=== PATIENT | female | born 1985 | race Caucasian/White ===

== ENCOUNTER → 2018-03-22 14:37 | Outpatient (CLI) | payer OTHER, SELFPAY ==
--- NOTE | 2018-03-22 | DI.US.S_ITS ---
ULTRASOUND OF LEFT BREAST: 03/22/2018 CLINICAL: Patient returns for additional imaging over a suspected mass in the left breast. Comparison is made to exam dated: 03/22/2018 mammogram - [facility]. Real-time and Doppler ultrasound of the left breast were performed. Siddiqi scale images of the real-time examination were reviewed. There is a 1.3 cm x 1.2 cm x 0.7 cm irregular mass with an angular margin in the left breast at 12 o'clock 8 cm from the nipple. This irregular mass is hypoechoic with internal echoes. This correlates as palpated and with mammography findings. Color flow imaging demonstrates that there is no vascularity present. IMPRESSION: SUSPICIOUS OF MALIGNANCY - FOLLOW-UP RECOMMENDED The 1.3 cm x 1.2 cm x 0.7 cm irregular mass in the left breast is at a low suspicion for malignancy. An ultrasound guided biopsy is recommended. These results and recommendations were discussed with the patient in person by [facility] Radiologist Dr. Xu Jacobsen at the time of the exam. This exam was interpreted at Station ID: [id number]. Electronically Signed By: Hilario Espinoza M.D. ecl/:03/22/2018 20:55:28 letter sent: Biopsy Required Ultrasound BI-RADS: 4a Suspicious abnormality - low suspicion for malignancy
--- NOTE | 2018-03-22 | DI.MG.S_ITS ---
BILATERAL DIGITAL DIAGNOSTIC MAMMOGRAM 3D/2D: 03/22/2018 CLINICAL: Baseline exam. Left breast lump. No prior exams were available for comparison. The tissue of both breasts is extremely dense, which lowers the sensitivity of mammography. There is a triangular marker overlying the skin of the upper left breast at the site of the patient's reported palpable abnormality. There is an approximately 1.4 cm oval indistinct asymmetry in the upper left breast at posterior depth seen only on the L MLO view, with internal calcifications and located slightly superior to the triangular palpable abnormality marker. No other significant masses, calcifications, or other findings are seen in either breast. IMPRESSION: INCOMPLETE: NEEDS ADDITIONAL IMAGING EVALUATION Approximately 1.4 cm oval indistinct asymmetry in the upper left breast at posterior depth seen only on the L MLO view, with internal calcifications and located slightly superior to the triangular palpable abnormality marker. Targeted diagnostic ultrasound recommended for further evaluation, which will be performed immediately following this exam. This exam was interpreted at Station ID: [id number]. NOTE: For mammograms, a report in lay terms will be sent to the patient. Approximately 15% of breast malignancies will not be visualized mammographically. In the management of a palpable breast mass, a negative mammogram must not discourage biopsy of a clinically suspicious lesion. Electronically Signed By: Hilario Espinoza M.D. ecl/:03/22/2018 21:12:09 letter sent: Additional Imaging Needed ACR BI-RADS Category 0: Incomplete [id number]
== END ==
PROVIDERS: Visit Provider Family Medicine
DX: R92.8 Other abnormal and inconclusive findings on diagnostic imaging of breast (principal); N63.20 Unspecified lump in the left breast, unspecified quadrant
CPT/HCPCS: 76642; 77066; G0279

== ENCOUNTER → 2018-04-05 07:45 | Outpatient (CLI) | payer OTHER, SELFPAY ==
--- NOTE | 2018-04-05 | DI.US.S_ITS ---
ULTRASOUND OF LEFT BREAST: 04/05/2018 CLINICAL: Patient here for left breast biopsy of palpable mass. Today mass measures smaller. biopsy cancelled. Patient will return for 3 month follow-up. Comparison is made to exams dated: 03/22/2018 ultrasound and 03/22/2018 mammogram [facility]. Real-time and Doppler ultrasound of the left breast were performed on the areas of interest. There is a 1 cm x 0.8 cm x 0.7 cm irregular mass with an angular margin in the left breast at 12 o'clock 8 cm from the nipple. This irregular mass is hypoechoic with internal echoes. This correlates as palpated and with mammography findings. Color flow imaging demonstrates that there is no vascularity present. This patient was scheduled to undergo an ultrasound guided breast biopsy. However, the lesion measures smaller in size on the current study than on the prior dated 03/22/18. Management options were discussed with the biopsy and a short-term followup in 3 months. The patient elected to follow this lesion rather than biopsy it. IMPRESSION: PROBABLY BENIGN - FOLLOW-UP RECOMMENDED The 1 cm x 0.8 cm x 0.7 cm irregular mass in the left breast is probably benign, given the decrease in size. A follow-up ultrasound in 3 months is recommended. Electronically Signed By: Thang teague/:04/05/2018 11:07:58 letter sent: Followup Recommended Ultrasound BI-RADS: 3 Probably benign
== END ==
PROVIDERS: Visit Provider Family Medicine
DX: N63.20 Unspecified lump in the left breast, unspecified quadrant (principal)
CPT/HCPCS: 76642

== ENCOUNTER → 2018-05-08 17:02 | Outpatient (CLI) | payer OTHER, SELFPAY ==
--- NOTE | 2018-05-08 17:05 | DI.RAD.S_ITS ---
PROCEDURE: XR LUMBAR SPINE 2-3V INDICATIONS: LOW BACK PAIN TECHNIQUE: 3 views of the lumbar spine were acquired. COMPARISON: None. FINDINGS: Bones: 5 [id number] vertebrae are present. There is normal bony alignment. No vertebral body compression fractures. No suspicious bony lesions. Soft tissues: Overlying bowel gas pattern is normal. No suspicious soft tissue calcifications. IMPRESSION: Unremarkable radiographic examination of lumbar spine. Dictated by: Carson Ordaz M.D. on 05/08/2018 at 19:37 Approved by: Carson Ordaz M.D. on 05/08/2018 at 19:37
== END ==
PROVIDERS: Visit Provider Family Medicine
DX: M54.5 Low back pain (principal)
CPT/HCPCS: 72100

== ENCOUNTER → 2018-07-14 12:42 | Outpatient (CLI) | payer OTHER, SELFPAY ==
--- NOTE | 2018-07-14 | DI.US.S_ITS ---
LIMITED ULTRASOUND OF LEFT BREAST: 07/14/2018 CLINICAL: 3 month follow-up of shrinking mass. Comparison is made to exams dated: 04/05/2018 ultrasound, 03/22/2018 ultrasound, and 03/22/2018 [facility]. Real-time and Doppler ultrasound of the left breast 12 o'clock region were performed. Siddiqi scale images of the real-time examination were reviewed. Previously noted mass in the left breast at 12 o'clock position 8 cm from the nipple seen on comparison breast ultrasounds of 03/22/2018 and 04/05/2018 is no longer detectable by ultrasound on today's exam. IMPRESSION: NEGATIVE Previously noted mass in the left breast at 12 o'clock position 8 cm from the nipple seen on comparison breast ultrasounds of 03/22/2018 and 04/05/2018 is no longer detectable by ultrasound on today's exam. Clinical follow-up is recommended for further evaluation and management. The patient is advised to monitor her breasts and to return for re-evaluation should she feel anything grow or change. Annual screening mammography beginning at age 40 is recommended, unless earlier high-risk screening is warranted due to individual patient risk factors for the development of breast malignancy. This exam was interpreted at Station ID: [id number]. Electronically Signed By: Hilario Espinoza M.D. ecl/:07/14/2018 13:26:52 letter sent: Clinical Evaluation Ultrasound BI-RADS: 1 Negative
== END ==
PROVIDERS: Visit Provider Family Medicine
DX: Z12.31 Encounter for screening mammogram for malignant neoplasm of breast (principal)
CPT/HCPCS: 76642

== ENCOUNTER → 2020-06-30 15:48 | Outpatient (CLI) | payer OTHER, SELFPAY ==
--- NOTE | 2020-06-30 | DI.RAD.S_ITS ---
PROCEDURE: XR FINGER RT MIN 2V INDICATIONS: RIGHT THUMB PAIN AT TO MCP JOINT TECHNIQUE: AP hand, 2 views of the 1st finger(s) acquired. COMPARISON: None. FINDINGS: Bones: No fractures or dislocations. No suspicious bony lesions. Soft tissues: No suspicious soft tissue calcifications. IMPRESSION: No definite radiographic abnormality. If pain persists with conservative management, consider cross sectional imaging such as CT or MRI for further assessment. Dictated by: Jaciel Greco A Interpreted: Estefany Cm MD on 06/30/2020 at 16:23 Approved by: Estefany Cm M.D. on 06/30/2020 at 17:09
== END ==
PROVIDERS: PCP Family Medicine; Referring Provider Family Medicine; Visit Provider Family Medicine
DX: M79.644 Pain in right finger(s) (principal)
CPT/HCPCS: 73140

== ENCOUNTER 2021-02-25 21:58 | Emergency (ER) | payer OTHER, SELFPAY ==
--- NOTE | 2021-02-25 22:04 | ED.URI ---
HPI - URI/Sore Throat General Chief Complaint: Recheck/Abnormal Lab/Rx Stated Complaint: wants a covid test Time Seen by Provider: 02/25/21 22:03 History of Present Illness HPI Narrative: 35-year-old female nonsmoker with noncontributory medical history presents requesting a test for COVID after attending a baby shower over the weekend where there was someone who was later found to be COVID positive. Patient denies any symptoms whatsoever. Patient denies fever, headache, runny nose, nasal congestion, sore throat, cough or GI symptoms such as nausea, vomiting or diarrhea Related Data Home Medications Medication Instructions Recorded Confirmed FOLIC ACID/VIT A/VIT B1/VIT 1 tab PO Q DAY #0 07/09/11 (#MULTIVITAMIN) Previous Rx's Medication Instructions Recorded MELOXICAM 15 mg PO QDAY #14 . 06/15/12 TRANEXAMIC ACID (LYSTEDA) 650 mg PO TID #21 06/15/12 omeprazole 20 mg capsule,delayed 20 mg PO QDAY@0600 #30 06/15/12 release CLOMIPHENE CITRATE (CLOMID~) 50 mg PO Q DAY #5 06/20/12 Allergies Allergy/AdvReac Type Severity Reaction Status Date / Time No Known Drug Allergies Allergy Verified 02/25/21 22:11 Review of Systems Review of Systems Narrative: GENERAL: Denies chills, fatigue, malaise, fever, sweats. HEENT: Denies sinus pain, ear pain, sore throat, difficulty swallowing, dizziness. RESPIRATORY: Denies dyspnea, cough, wheezing, hemoptysis, sputum. CARDIOVASCULAR: Denies chest pain, palpitations, orthopnea, edema, GASTROINTESTINAL: Denies nausea, vomiting, abdominal pain, diarrhea, constipation, melena. : Denies dysuria, frequency, incontinence, hematuria, urinary retention. MUSCULOSKELETAL: denies weakness, joint pain, or bony pain SKIN: Denies rash, skin lesions, or other NEUROLOGIC: Denies weakness, headache, numbness, change in speech, confusion, seizures, incoordination. PSYCHIATRIC: No concerning psychosocial issues. 12 point review of systems is negative except for those stated above Patient History Social History Smoking Status: Never smoker Exam Narrative Exam Narrative: GEN: AOx3 and in no obvious distress, resting comfortably EYES: Pupils are equal, round, and reactive to light and accommodation. Extraoccular muscles are intact bilaterally. There is no subconjunctival hemorrhage or exudate. CHEST: Lungs are clear to auscultation bilaterally and free of wheezes, rales, or rhonchi. Heart rate is regular rhythm, there are no murmurs, clicks, rubs, or gallops. There is no chest wall tenderness. ABD: Abdomen is soft and nontender. There is no guarding or rebound. Bowel sounds are normal in all 4 quadrants. There is no mass or organomegaly. EXT: Full painless ROM of all extremities with no loss of sensation or strength. SKIN: Warm, pink, and dry. No erythema or rash Initial Vital Signs Initial Vital Signs: Vital Signs Temperature 98.2 F 02/25/21 22:11 Pulse Rate 92 H 02/25/21 22:11 Respiratory Rate 14 02/25/21 22:11 Blood Pressure 124/63 02/25/21 22:11 Pulse Oximetry 97 02/25/21 22:11 Course Orders Ordered: ED Orders 02/25/21 22:10 COVID19 -Nasal swab/Pre-Proc Stat Vital Signs Vital signs: Vital Signs - 8 hr 02/25/21 22:11 Temperature 98.2 F Pulse Rate 92 H Respiratory Rate 14 Blood Pressure 124/63 Pulse Oximetry 97 MDM - URI/Sore Throat Lab Data Labs: Lab Results 02/25/21 Range/Units 22:10 SARS-CoV-2 (PCR) Negative (Negative) Discharge Plan Departure Patient Disposition: Home Clinical Impression: Feared complaint without diagnosis Instructions: COVID-19 Viral Test Activity Restrictions/Additional Instructions: *You have been diagnosed with [COVID exposure, with negative test] *What to do: *Please continue to take your regular medications as directed. [ ] New medication prescriptions sent to your pharmacy: [ ] [ ] New medication written as a paper prescription [ x] No new medications given *Please follow up with your primary care provider in 2-3 days, call for an appointment. Let them know you were seen in the Emergency Department and that we ask that you be seen in follow up. We will electronically transmit a record of today's note if your PCP is in our system *If you do not have a primary care provider please contact the [facility] Resource line at [phone]. They will ask some questions about your medical history and help get you set up with a doctor in the community. *Return to Emergency Department if you should have any new, worsening or concerning symptoms, such as [fever greater than 101 F, shaking chills, worsening pain, persistent vomiting or other bothersome symptoms] Prescriptions: No Action FOLIC ACID/VIT A/VIT B1/VIT (#MULTIVITAMIN) 1 tab PO Q DAY Qty: 0 RF: 0 omeprazole 20 MG capsule,delayed release(DR/EC) 20 mg PO QDAY@0600 Qty: 30 RF: 1 MELOXICAM 15 mg PO QDAY Qty: 14 RF: 3 TRANEXAMIC ACID (LYSTEDA) 650 mg PO TID Qty: 21 RF: 3 CLOMIPHENE CITRATE (CLOMID~) 50 mg PO Q DAY Qty: 5 RF: 3 Referrals: Fay Aguero MD [Primary Care Provider] -
[2021-02-25 22:11] VITALS: BP 124/63; PULSE 92; RESP 14; TEMP 36.8; O2SAT 97
[2021-02-25 22:47] LABS: COVID19 -Nasal RAPID Negative (Negative)
== END 2021-02-25 23:11 | disposition home or self-care (01) ==
PROVIDERS: Emergency Provider Emergency Medicine; PCP Family Medicine
DX: Z20.822 Contact with and (suspected) exposure to COVID-19 (principal)
CPT/HCPCS: 87635; 99281; C9803

== ENCOUNTER → 2021-06-29 12:13 | Outpatient (CLI) | payer OTHER, SELFPAY ==
--- NOTE | 2021-06-29 | DI.US.S_ITS ---
PROCEDURE: US ABDOMEN COMPLETE INDICATIONS: Generalized abdominal pain TECHNIQUE: Real-time scanning was performed of the abdominal and retroperitoneal organs, with image documentation. COMPARISON: None. FINDINGS: Liver: Liver is normal in size and homogeneous in echotexture. Gallbladder: Normal appearance Biliary ducts: Intrahepatic bile ducts are non-dilated. Extrahepatic bile duct caliber measures 2 mm. Normal is 6-7 mm or less in diameter, or 10 mm or less post-cholecystectomy. Pancreas: Predominantly obscured. Spleen: Spleen is normal in size and homogeneous in echotexture. Kidneys: Kidneys are normal in size and echotexture. Right kidney measures 10.5 cm long; left kidney measures 10.7 cm long. No hydronephrosis or nephrolithiasis. No solid masses. Aorta: Visualized aorta is normal in caliber at less than 3 cm. Iliacs: Proximal common iliac arteries are normal in caliber at less than 2.5 cm. IVC: Intrahepatic inferior vena cava is patent. Miscellaneous: No free abdominal fluid. IMPRESSION: No significant abnormality. Dictated by: Rupesh Merino M.D. on 06/29/2021 at 14:32 Approved by: Rupesh Merino M.D. on 06/29/2021 at 14:34
== END ==
PROVIDERS: PCP Family Medicine; Referring Provider Family Medicine; Visit Provider Family Medicine
DX: R10.84 Generalized abdominal pain (principal)
CPT/HCPCS: 76700

== ENCOUNTER 2022-11-22 10:23 | Day surgery (SDC) | payer OTHER, SELFPAY ==
[2022-11-19 09:33] VITALS: BMI 21.9
[2022-11-22] VITALS (15 sets, daily range): BP systolic 109–127; BP diastolic 68–84; PULSE 61–87; RESP 12–21; TEMP 36.4–36.9; O2SAT 98–100; BMI 21.9
--- NOTE | 2022-11-22 | PATH_ITS ---
Note [facility] Accession Number: [id number] TESTS RESULT FLAG UNITS REF RANGE LAB Clinician Provided Cytology Information No. of containers..01 Other (Miscellaneous) Source: LEFT OVARIAN CYST FL DIAGNOSIS: LEFT OVARIAN CYST FL NEGATIVE FOR MALIGNANT CELLS. THIS INTERPRETATION INCLUDES EVALUATION OF A CELL BLOCK. Pathologist ICD10: N83.209 Signed out by: Shelli Vincent MD, Pathologist NPI- [id number] Performed by: Seymour Griggs, Rfid Specialist ([facility]) Gross description: 10 CC, YELLOW, HAZY RECEIVED: FRESH IN ORANGE CAP CONTAINER.VO /VDU 11/23/2022 0632 Local FLAG LEGEND: L-Low Normal,H-High Normal,LL-Alert Low,HH-Alert High <-Panic Low,>-Panic High,A-Abnormal,AA-Critical Abnormal Performed at: 01 =Z [facility] [address] [place] [address] [address], [place] [address] Aquiles Elam MD, Performed at: 01 [facility] [address] [place] [address] [address], [place], [place] [id number] MD Aquiles Elam MD Phone: [phone]
[2022-11-22] MEDS: LACTATED RINGERS 1,000 ML 100 ML IV (11:15)
--- NOTE | 2022-11-22 11:52 | PM.GYNHP.1 ---
History of Present Illness History of Present Illness Reason for admission: pelvic pain Narrative: Javon Mixon is a 36 year old female G0 who presents for a diagnostic laparoscopy and possible fulguration of endometriosis. This is being done due to pelvic pain, dysmenorrhea, and menorrhagia. Patient has not had any prior laparoscopy. [facility] Medical History (Updated 10/31/22 @ 15:34 by Cherelle Rice MD) Endometriosis (~2011) Headache Heavy menses Infertility (~2009) Irregular menstrual cycle Menses painful Migraines Neutropenia Surgical History (Updated 12/17/21 @ 21:40 by Crissy Delarosa) Anesthesia History of ear surgery (~1995) Hx of tympanostomy tubes Family History (Updated 12/17/21 @ 21:48 by Crissy Delarosa) Sister Endometriosis Ovarian cyst Spinal disorder Esophageal disease Sister Multiple drug allergies Endometriosis Ovarian cyst Grandfather Cancer Hypertension Grandmother Hypertension Grandfather Dementia Grandmother Cancer Stroke Family/Other Breast cancer Social History household members: spouse Smoking Status: Never smoker alcohol intake: current Meds Home Medications and Allergies Home Medications Medication Instructions Recorded Confirmed Type levocetirizine 5 mg tablet 5 mg PO DAILY 11/22/22 11/22/22 History Allergies Allergy/AdvReac Type Severity Reaction Status Date / Time No Known Drug Allergies Allergy Verified 11/22/22 10:51 Exam Vital Signs (past 8 hours): - 11/22/22 11:09 Temperature 98.2 F Pulse Rate 69 Respiratory Rate 21 Blood Pressure 113/68 Pulse Oximetry 100 Oxygen Delivery Method Room Air Oxygen Delivery Method Room Air Narrative Exam Narrative: HEENT: [No thyromegaly, no anterior cervical or supraclavicular lymphadenopathy.] Lungs:[Clear to auscultation bilaterally, no wheezes.] Cardiovascular: [Regular rate and rhythm, no murmurs, rubs, or gallops]. Abdomen: [No scars. No hepatosplenomegaly. No masses palpable.] External genitalia: [Normal] Vagina: [Normal] Cervix: [Normal] Bimanual exam: [[6] Week size uterus. Mobile.] Rectal: [No masses]. Assessment & Plan Assessment & Plan narrative: Assessment: 36-year-old 0 with dysmenorrhea and menorrhagia Suspect endometriosis Plan: Diagnostic laparoscopy with possible fulguration of endometriosis The risks, benefits, and alternatives to the procedure were explained to the patient. The risks including bleeding, infection, injury to the bowel, bladder, or ureters. She understands these risks and agrees to proceed. A full par Q was held and consent form was signed. Time Spent With Patient Time with patient: less than 30 minutes
--- NOTE | 2022-11-22 11:54 | PM.PREOP ---
Pre-operative Note COVID-19 Criteria for continued procedure: Non-surgical alternatives not available or appropriate per current SOC Interval Note History & Physical reviewed/Exam performed by Physician: Yes Changes to H&P: No H&P completed within 30 days and has changed as indicated here:: 11/22/22
[2022-11-22] MEDS: CEFAZOLIN 2 GM/100 ML PREMIX 100 ML IV (12:20)
[2022-11-22] MEDS: BUPIVACAINE 0.5% (PF) 30 ML, EPINEPHrine 0.15 MG INJ (12:30)
--- NOTE | 2022-11-22 12:33 | SUR.OPER ---
Lithotomy on padded OR bed. [place] Pad Positioner under torso. Head on pillow, arms padded and tucked at sides. Legs secured in padded yellow fins stirrups.
[2022-11-22] MEDS: HYDROMORPHONE 2 MG INJ IV ×2 (13:28→13:41)
--- NOTE | 2022-11-22 13:30 | PM.GYNOP.1 ---
Operative Date/Time/Diagnoses Date of procedure: 11/22/22 Time of procedure: 13:30 Pre-op diagnosis: Menorrhagia Severe dysmenorrhea Pelvic pain Post-op diagnosis: same Procedure & Clinicians Procedure: Procedures Operation Date: 11/22/22 11:45 Actual Procedure Side Surgeon bryant YEH Laparoscopy and aspiration of left ovarian cyst Left Cherelle Rice MD Indications: Menorrhagia Severe dysmenorrhea Pelvic pain Surgeon: Cherelle Rice Pin Drafting Machine Tender: Kriss [place] Anesthesia Type: General and Local Operative Notes Findings: 8 week size retroflexed uterus Severe endometriosis of posterior cul de sac and bilateral ovarian fossae R>L Normal liver, gallbladder and appendix 2cm fibroma on the left ovary 4cm left ovarian cyst Normal right tube and ovary Right ovary stuck to pelvic sidewall Closure Type: primary Specimen(s): other (left ovarian cyst fluid) Estimated blood loss (mL): 5 Blood products transfused: none Procedure in detail: After informed consent was obtained, the patient was taken to the operating room where she was placed in the dorsal supine position. After adequate general endotracheal anesthesia was achieved, she was placed in the dorsal lithotomy position, and prepped and draped in the usual sterile fashion. A time-out was performed. A bivalve speculum was placed into the vagina and the anterior lip of the cervix was grasped with a single-tooth tenaculum. The cervical os was sequentially dilated in the retroverted position until the Zumi uterine manipulator could pass easily into the endometrial cavity. The single-tooth tenaculum was removed from the anterior lip of the cervix. The bivalve speculum was removed from the vagina. Attention was then turned to the abdomen where 6 cc of 0.5% Marcaine with epinephrine were injected in the umbilical fold. A 5 mm incision was made. The Veress needle was placed into the peritoneal cavity, and its placement confirmed by aspiration and drop test. The abdominal cavity was insufflated with 3.5 L of CO2. The Veress needle was removed, and a 5 mm trocar was placed without difficulty. A second incision was made 4 cm on the left side lateral to the umbilicus after 6 cc of 0.5% Marcaine with epinephrine were injected. A 5 mm trocar was placed without difficulty and under direct visualization. Initial inspection of the pelvis and abdomen revealed the findings noted above. There was significant endometriosis of the fundus of the uterus as well as posteriorly which caused the uterus to be ?stuck? in the posterior cul-de-sac. Both ovarian fossa had evidence of severe endometriosis. No endometriosis on the bladder, appendix, were diaphragm. Using a point aspirator, the cyst on the left ovary was drained and the cyst fluid sent to cytology. The instruments were removed from the abdomen. The CO2 was allowed to escape. The incisions were closed with 4-0 Monocryl in a subcuticular fashion. Steri-Strips and Allevyn dressings were placed. The Zumi uterine manipulator was removed from the uterus. Sponge, lap, and instrument counts were correct x2. The patient tolerated the procedure well, and was taken to PACU in stable condition. Complications: none Post-operative Condition: stable Disposition: PACU Plan for aftercare: Home after Recovery
[2022-11-22] MEDS: OXYCODONE/ACETAMINOPHEN 5/325 TABLET 1 TAB PO (13:51)
[2022-11-22] MEDS: ONDANSETRON 4 MG/2 ML INJ IV (14:37)
[2022-11-22] MEDS: METOCLOPRAMIDE 10 MG/2 ML INJ IV (14:56)
== END 2022-11-22 15:05 | disposition home or self-care (01) ==
PROVIDERS: PCP Family Medicine; Referring Provider Obstetrics & Gynecology; Visit Provider Obstetrics & Gynecology
PROC: 0U5B4ZZ Destruction of Endometrium, Percutaneous Endoscopic Approach (ICD-10-PCS; CPT 58662; principal; 2022-11-22 11:45)
DX: N92.0 Excessive and frequent menstruation with regular cycle (principal); N94.6 Dysmenorrhea, unspecified; D27.1 Benign neoplasm of left ovary; N80.329 Endometriosis of the posterior cul-de-sac, unspecified depth
CPT/HCPCS: 49322; J0171; J0690; J1170; J2250; J2405; J2704; J2765; J3010

== ENCOUNTER 2023-04-28 12:32 | Day surgery (SDC) | payer OTHER, SELFPAY ==
[2023-04-25 13:32] VITALS: BMI 23.0
[2023-04-28] VITALS (9 sets, daily range): BP systolic 100–115; BP diastolic 47–75; PULSE 67–104; RESP 14–16; TEMP 36.2–36.7; O2SAT 98–100; BMI 22.8
--- NOTE | 2023-04-28 | PATH_ITS ---
[facility] Accession Number: [id number] No. of containers..01 Tissue . 01 Material submitted: . uterus - UTERUS AND BILATERAL FALLOPIAN TUBES . 01 Diagnosis: Uterus and Bilateral Fallopian Tubes, Supracervical Hysterectomy and Bilateral Salpingectomy: Late secretory endometrium with no diagnostic abnormality. Benign leiomyomata, up to 0.4 cm in greatest dimension. Bilateral fimbriated fallopian tubes with focal involvement (2 mm) by endometriosis, and simple benign paratubal cysts. No evidence of malignancy. MRV 05/03/2023 1307 Local . 01 Electronically signed: . Doug Carrasco MD, PhD, Pathologist NPI- [id number] . 01 Gross description: . The specimen is received in formalin labeled with the patient's name, , and uterus and fallopian tubes, consists of a fragmented uterus (57 grams, 10.7 x 8.4 x 2.7 cm in aggregate) with two unoriented fimbriated fallopian tubes (7.2 x 1.0 cm and 4.2 x 0.7 cm, respectively) with no cervix or additional adnexa identified. The serosa is chirinos and roughened with no hemorrhage grossly identified. The presumed endometrium is brown, irregular, and averages approximately 0.3 cm in average thickness with no discrete lesions identified. The myometrium is chirinos and trabecular with two well-circumscribed white whorled nodules ranging from 0.2 to 0.4 cm in greatest dimension with no hemorrhage or necrosis identified. . The longer fallopian tube has violaceous, smooth serosa with no cystic structures identified, and sectioning reveals an unremarkable stellate lumen. The shorter fallopian tube has chirinos, roughened serosa with multiple cystic structures measuring up to 0.3 cm in greatest dimension filled with cloudy serous fluid. Sectioning reveals an unremarkable stellate lumen. . Car Icer sections are submitted as follows: A1: Endometrium with nodule. A2: Serosa. A3: Second nodule. A4: Longer fallopian to include one-half of bisected fimbriae and cross sections. A5: Letcher fallopian tube to include one-half of the bisected fimbriae and cross sections. ([id number]) /MRV 04/29/2023 0931 Local . 01 Pathologist provided ICD-10: N80.9, N92.0, R10.2 . 01 CPT . 561915 Specimen Comment: A courtesy copy of this report has been sent to [phone] Performed at: 01 [facility] [address] [place] [address], [place], [place] [id number] MD Aquiles Elam MD Phone: [phone]
[2023-04-28] MEDS: LACTATED RINGERS 1,000 ML 100 ML IV (13:08)
[2023-04-28] MEDS: SCOPOLAMINE 1 PATCH TOP (13:11)
--- NOTE | 2023-04-28 13:14 | PM.PREOP ---
Pre-operative Note Interval Note History & Physical reviewed/Exam performed by Physician: Yes Changes to H&P: No H&P completed within 30 days and has changed as indicated here:: 04/14/23
[2023-04-28] MEDS: CEFAZOLIN 2 GM/100 ML PREMIX 100 ML IV (13:55)
[2023-04-28] MEDS: ACETAMINOPHEN IV 1,000 MG/100 ML VIAL 400 MG IV (14:05)
--- NOTE | 2023-04-28 14:27 | SUR.OPER ---
Lithotomy on padded OR bed. [place] Pad Positioner under torso. Head on pillow, arms padded and tucked at sides. Legs secured in padded yellow fins stirrups.
--- NOTE | 2023-04-28 14:40 | SUR.OPER ---
Lithotomy on padded OR bed, head on pillow, arms secured on padded arm boards at <90 degrees abduction. Legs secured in padded yellow fins stirrups.
[2023-04-28] MEDS: LACTATED RINGERS 1,000 ML 42 ML IV (14:50)
[2023-04-28] MEDS: ROPIVACAINE 0.5% PF 5 MG/ML 20ML VIAL 10 ML INJ (14:51)
--- NOTE | 2023-04-28 15:30 | P.OP_ITS ---
Operative Date/Time/Diagnoses Date of procedure: 04/28/23 Time of procedure: 15:30 Pre-op diagnosis: Dysmenorrhea Menorrhagia Post-op diagnosis: same Procedure & Clinicians Procedure: Procedures Operation Date: 04/28/23 13:30 Actual Procedure Side Surgeon p Laparoscopic Supracervical Hysterectomy w/ bilateral salpingectomy Cherelle Rice MD Indications: 37-year-old with known history of endometriosis with severe dysmenorrhea and menorrhagia She presents for a laparoscopic supracervical hysterectomy with bilateral salpingectomy Surgeon: Cherelle Rice Pediatric Dietician: Kriss [place] Anesthesia Type: General and Local Operative Notes Findings: 8 week size retroverted uterus Endometriosis of the left ovary Simple ovarian cyst of the left ovary Normal tubes Normal liver and gallbladder Normal appendix Closure Type: primary Specimen(s): left tube, right tube and uterus Applied: catheter (Removed at the end of the case) Estimated blood loss (mL): 20 Blood products transfused: none Procedure in detail: The patient was taken to the operating room where she was placed in the dorsal supine position. After adequate general endotracheal anesthesia was achieved, she was placed in the dorsal lithotomy position, and prepped and draped in the usual sterile fashion. A timeout was performed. A bivalve speculum was placed into the vagina and the anterior lip of the cervix grasped with a single-tooth tenaculum. The cervical os was sequentially dilated until the ZUMI uterine manipulator could pass easily into the endometrial cavity. The single-tooth tenaculum was removed from the anterior lip of the cervix, and the bivalve speculum was removed from the vagina. Attention was then turned to the abdomen where 6 mL of half percent Marcaine with epinephrine were injected in the u mbilical fold. A 5 mm incision was made. The Verees needle was placed into the peritoneal cavity, and its placement confirmed by aspiration and drop test. The Verees needle was removed. A 5 mm trocar was placed without difficulty. 2 other incisions were made 4 cm lateral to the umbilicus after 5 mL of half percent Marcaine with epinephrine were injected. These were 5 mm incisions. Two 5 mm trocars were placed under direct visualization. The right tube was grasped with an atraumatic grasper. Using the power seal the mesosalpinx was cauterized and cut all the way down to the cornua of the uterus. The cornua of the uterus was then grasped with an atraumatic grasper. The utero-ovarian ligaments were cauterized and cut. The round ligament and broad ligament was cauterized and cut with the power seal. Hemostasis was achieved. The bladder flap was created using the power seal with cautery and cut retirement across. The uterine arteries on the right side were extensively cauterized with the power seal. All of this was repeated on the left side. The remainder of the bladder flap was created using the power seal, and the bladder taken down off the lower uterine segment and cervix. Using the [place], the cervix was amputated from the uterus 2 cm above the uterosacral ligaments, after the ZUMI uterine manipulator was removed from the uterus. No bleeding was noted. The end ocervical canal was extensively cauterized with the spatula cautery. The spatula cautery was used to fulgurate endometriosis of the left ovary. A sponge stick was placed into the vagina. 6 mL of half percent Marcaine with epinephrine were injected above the pubic symphysis. A 12 mm trocar was placed. An Endobag was placed through the suprapubic trocar and the uterus and tubes were placed into the Endobag. The trocar was removed. The edges of the endobag were brought up through the skin. The uterus was grasped with a Muu. The Saman was placed into the endobag. The uterus was hand morcellated in approximately 5 pieces. The Endobag was removed from the peritoneal cavity. The pelvis was copiously irrigated with warm normal saline. No bleeding was noted. 20 cc of 0.2% ropivacaine were placed over the pelvic pedicles. The instruments were removed from the abdomen. The CO2 was allowed to escape. The suprapubic incision was closed on the fascia with 0 Vicryl. Two simple interrupted sutures with 3-0 Vicryl were placed in the subcutaneous layer. All of the incisions were closed with 4-0 Biosyn in a subcuticular fashion. The moistened sponge stick was removed from the vagina. Sponge, lap, and instrument counts were correct x-2. The patient tolerated the procedure well, was taken to PACU in stable condition. Complications: none Post-operative Condition: stable Disposition: PACU Plan for aftercare: Home after recovery
[2023-04-28] MEDS: OXYCODONE IR 5 MG TABLET PO (16:10)
[2023-04-28] MEDS: ONDANSETRON 4 MG/2 ML INJ IV (16:11)
[2023-04-28] MEDS: MEPERIDINE 50 MG/ML INJ 12.5 MG IV (16:26)
--- NOTE | 2023-04-28 17:21 | SUR.PHASEII ---
drsgs dry and intact. mariano pad dry.
== END 2023-04-28 18:10 | disposition home or self-care (01) ==
PROVIDERS: PCP Family Medicine; Referring Provider Obstetrics & Gynecology; Visit Provider Obstetrics & Gynecology
PROC: 0UT94ZL Resection of Uterus, Supracervical, Percutaneous Endoscopic Approach (ICD-10-PCS; CPT 58542; principal; 2023-04-28 13:30)
DX: N94.6 Dysmenorrhea, unspecified (principal); N92.0 Excessive and frequent menstruation with regular cycle; N83.292 Other ovarian cyst, left side; D25.9 Leiomyoma of uterus, unspecified; N83.8 Other noninflammatory disorders of ovary, fallopian tube and broad ligament; N80.203 Endometriosis of bilateral fallopian tubes, unspecified depth
CPT/HCPCS: 58542; 81025; J0131; J0690; J1100; J1170; J1885; J2175; J2405; J2704; J3010; J3490

== ENCOUNTER → 2024-01-17 17:28 | Outpatient (CLI) | payer OTHER, SELFPAY ==
--- NOTE | 2024-01-17 17:30 | DI.RAD.S_ITS ---
PROCEDURE: XR SHOULDER LT MIN 2V INDICATIONS: ACUTE PAIN IN LF SHOULDER TECHNIQUE: 3 views of the shoulder were acquired. COMPARISON: None. FINDINGS: Bones: No fractures or dislocations. Mild acromioclavicular joint osteoarthritic changes are seen with joint space narrowing, subchondral sclerosis and small marginal osteophyte formation. No suspicious bony lesions. Visualized ribs appear intact. Soft tissues: No suspicious soft tissue calcifications. IMPRESSION: No acute shoulder fracture or dislocation. Mild acromioclavicular joint osteoarthritis. Dictated by: Carson Ordaz M.D. on 01/18/2024 at 10:47 Approved by: Carson Ordaz M.D. on 01/18/2024 at 10:50
== END ==
PROVIDERS: PCP Family Medicine; Referring Provider Family Medicine; Visit Provider Family Medicine
DX: M19.012 Primary osteoarthritis, left shoulder (principal); M25.512 Pain in left shoulder
CPT/HCPCS: 73030

== ENCOUNTER → 2025-04-01 08:35 | Outpatient (CLI) | payer OTHER, SELFPAY ==
--- NOTE | 2025-04-01 08:37 | DI.MG.S_ITS ---
MM screening mammo BI: 04/01/2025. BI-RADS: 1 CLINICAL: 39-year old female for bilateral screening mammogram. Tyrer-Cuzick lifetime risk of 24.5%. No personal or first-degree family history of breast cancer. Current reported family history of breast cancer: paternal grandmother and paternal aunt. History of ovarian cancer in one first-degree relative. PRIOR EXAMS 07/14/2018, 04/05/2018, 03/22/2018. MAMMOGRAPHY TECHNIQUE: 2D and 3D (tomosynthesis) digital mammographic views obtained, with additional images as needed for full coverage. Current study was also evaluated with a Computer Aided Detection (CAD) system. DENSITY D. The breasts are extremely dense, which lowers the sensitivity of mammography. MAMMOGRAPHY FINDINGS Bilateral: No suspicious mass, asymmetry, microcalcification, or other abnormality seen. IMPRESSION: * No evidence of malignancy. RECOMMENDATIONS Bilateral * According to the Tyrer-Cuzick Risk Assessment Model, based on the information provided your patient has a greater than 20% lifetime risk for developing breast cancer. Consider supplemental screening with breast MRI and participation in a high risk screening program. * Annual screening mammography. OVERALL ASSESSMENT CATEGORY BI-RADS-1: Negative. The [employer] recommends annual screening mammography beginning at age 40 for women with average risk of breast cancer. ELECTRONICALLY SIGNED: Patt Felipe M.D. on 04/04/2025 at 08:38:12 AM PT Interpreting Station ID: [id number]
== END ==
LOC: MAMMO 08:36
PROVIDERS: PCP Family Medicine; Referring Provider Family Medicine; Visit Provider Family Medicine
DX: Z12.31 Encounter for screening mammogram for malignant neoplasm of breast (principal); Z90.49 Acquired absence of other specified parts of digestive tract; R92.343 Mammographic extreme density, bilateral breasts
CPT/HCPCS: 77063; 77067

== ENCOUNTER → 2025-05-13 08:22 | Outpatient (CLI) | payer OTHER, SELFPAY ==
--- NOTE | 2025-05-13 08:23 | DI.US.S_ITS ---
PROCEDURE: US PELVIC COMPLETE INDICATIONS: adnexal pain TECHNIQUE: Real-time scanning was performed of the pelvic organs, with image documentation. Additional endovaginal scanning was necessary due to incomplete visualization of the adnexal and endometrial structures by transabdominal scanning. COMPARISON: None. FINDINGS: Uterus: Absent Ovaries: Right ovary measures 7 cc. Left ovary measures 6 cc. Septated cyst is seen in the right ovary measuring 1.7 x 1.2 cm. Left adnexal para ovarian cyst measures 2.3 x 2.1 cm. Other: Mildly hyperemic appearance of the cervix. IMPRESSION: Nonenlarged ovaries. Right ovarian septated cyst measures 1.7 x 1.2 cm. A 1-2 month follow-up may be obtained to ensure stability/resolution, depending on clinical context. Left para ovarian cyst measures 2.3 x 2.1 cm. Nonspecific, mild hyperemic appearance of the cervix. This could be further assessed with direct visualization. Dictated by: Alber Austin M.D. on 05/13/2025 at 9:19 Approved by: Alber Austin M.D. on 05/13/2025 at 9:22
== END ==
LOC: US 08:23
PROVIDERS: PCP Family Medicine; Referring Provider Family Medicine; Visit Provider Family Medicine
DX: N83.202 Unspecified ovarian cyst, left side (principal); N83.201 Unspecified ovarian cyst, right side; R10.20 Pelvic and perineal pain unspecified side
CPT/HCPCS: 76830; 76856